=== PATIENT | female | born 1945 | race Caucasian/White ===

== ENCOUNTER 2021-08-17 18:58 | Emergency (ER) | payer MEDICARE, BC, SELFPAY ==
[2021-08-17 19:09] VITALS: BP 166/69; PULSE 72; RESP 16; TEMP 36.6; O2SAT 98; BMI 25.6
--- NOTE | 2021-08-17 19:37 | CRLHL7_ITS ---
For Patients: As a result of the Cures Act, medical imaging exams and procedure reports are released immediately into your electronic medical record. You may view this report before your referring provider. If you have questions, please contact your health care provider. HISTORY: Pain after injury. COMPARISON: None available. FINDINGS: The left foot is examined with AP, lateral, and oblique views. There is what appears to be a healing, nondisplaced, oblique, intra-articular fracture of the base of the 5th metatarsal. This fracture has poorly circumscribed margins consistent with healed There is an acute, nondisplaced, longitudinal fracture of the base of the 5th metatarsal, without extension into the articular surface. This fracture has crisp margins. There is no sign of additional fracture or dislocation. The soft tissues are normal in appearance without sign of radio-opaque foreign body. 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 There is a moderate plantar calcaneal spur. IMPRESSION: Healing, nondisplaced, oblique, intra-articular fracture of the base of the 5th metatarsal. Acute, nondisplaced, longitudinal fracture of the base of the 5th metatarsal. Dictated by Donaldo Gallo MD @ 08/17/2021 9:12:12 PM (Electronically Signed)
--- NOTE | 2021-08-17 19:38 | ED.LOWEXIN ---
HPI - Extremity Injury (Lower) General Time Seen by Provider: 19:38 Date Seen: 08/17/21 Chief Complaint: Extremity Pain/Injury, Lower Stated Complaint: LEFT FOOT INJURY Time Seen by Provider: 08/17/21 19:27 Source: patient History of Present Illness HPI Narrative: This 76-year-old female comes in with a persistent pain and swelling in the lateral aspect of her left foot. She states that she fell or twisted her foot a couple weeks ago and has been ambulating on it since then. She states that the pain is persisted with some mild erythema and swelling with tenderness at the base of the left 5th metatarsal. Related Data Home Medications Medication Instructions Recorded Confirmed benazepril 10 mg tablet mg 08/17/21 levothyroxine 88 mcg tablet mcg 08/17/21 rosuvastatin 10 mg tablet (Crestor) 10 mg PO DAILY 08/17/21 08/17/21 Allergies Allergy/AdvReac Type Severity Reaction Status Date / Time No Known Drug Allergies Allergy Verified 08/17/21 19:15 Review of Systems Status of ROS: Reports: 10 or more systems reviewed and unremarkable except as noted in History and below Narrative: Constitutional: No fevers, no weight gain or loss. Eyes: No discharge. No vision changes. HENT: No congestion, no sore throat, no ear pain. Cardiovascular: No chest pain, no palpitations. Respiratory: No shortness of breath, no wheezes, no cough. Gastrointestinal: No abdominal pain, no vomiting, no diarrhea. Genitourinary: No dysuria, no hematuria. Musculoskeletal: Left foot injury as described above. Skin: No rashes, no pruritis. Neurological: No dizziness, weakness, sensory change, speech change. Endo/Heme/Allergies: No bruising or bleeding. No polydipsia. Pysch: no suicidality, no anxiety, no insomnia. All other systems reviewed and are negative. PFSH PFSH Social History Smoking Status: Never smoker Do you use any of these nicotine containing products: None Second hand tobacco smoke exposure: Yes How often do you have a drink containing alcohol: monthly or less How often do you have six or more drinks on one occasion: Never AUDIT-C Alcohol total score: 1 Non-prescribed substance use: denies use Exam Narrative: Exam Narrative: Constitutional: Well-developed, well-nourished, no acute distress. HEENT: Normocephalic, atraumatic. Neck: Normal range of motion. Nontender. Supple. Heart: Regular. No murmurs. Normal rate. Intact distal pulses. Lungs: Clear to auscultation. No chest discomfort. No wheezes, rhonchi, or rales. Abdomen: Normal bowel sounds. Nontender. No rebound tenderness. Genitalia: Deferred. Back: No midline tenderness. Normal range of motion. Extremities: Tenderness localized on the proximal portion of the left 5th metatarsal with some overlying swelling and erythema. Skin: Intact. No rash. Warm. No erythema or pallor. Neurologic: No altered sensation. No weakness. Alert and oriented. Psychiatric: No suicidality. No anxiety or depression. No insomnia. Nursing notes and vitals signs are reviewed. Const: Vital Signs, click to edit/add: Vital Signs - 24 hr 08/17/21 19:09 Temperature 97.8 F Pulse Rate [Left P ulse Oximeter] 72 Respiratory Rate 16 Blood Pressure [Ri ght Upper Arm] 166/69 H Pulse Oximetry 98 Course Vital Signs Vital signs: Initial Vital Signs Temperature 97.8 F 08/17/21 19:09 Temperature Source Temporal Artery Scan 08/17/21 19:09 Pulse Rate 72 08/17/21 19:09 Pulse Strength 0+ Absent 08/17/21 19:09 Respiratory Rate 16 08/17/21 19:09 Blood Pressure 166/69 H 08/17/21 19:09 Blood Pressure Mean 101 08/17/21 19:09 Blood Pressure Position Sitting 08/17/21 19:09 Pulse Oximetry 98 08/17/21 19:09 Oxygen Delivery Method 08/17/21 19:09 Vital Signs Temperature 97.8 F 08/17/21 19:09 Pulse Rate 72 08/17/21 19:09 Respiratory Rate 16 08/17/21 19:09 Blood Pressure 166/69 H 08/17/21 19:09 Pulse Oximetry 98 08/17/21 19:09 Temperature 97.8 F 08/17/21 19:09 Pulse Rate 72 08/17/21 19:09 Respiratory Rate 16 08/17/21 19:09 Blood Pressure 166/69 H 08/17/21 19:09 Pulse Oximetry 98 08/17/21 19:09 MDM - Extremity Injury (Lower) MDM Narrative Medical decision making narrative: This patient comes in with an injury to her left foot that occurred 2 or 3 weeks ago. She continues to have some pain on the lateral aspect with some mild swelling and erythema. X-ray imaging shows what may have been a E nondisplaced fracture that is in the process of healing. This is at the base of the 5th metatarsal of the left foot. There is no displacement or malalignment. This patient is encouraged to ambulate in a way to minimize pain. She received an Juan Pablo wrap. It does not seem necessary to need to immobilize as this injury. I advised her to follow-up with orthopedic clinic as needed or if not improving. Imaging Data Foot x-ray: My impression: The base of the 5th metatarsal has a cortical irregularity suspicious of a nondisplaced fracture that is in process of healing by my review. Radiology report is pending Discharge Plan Discharge Clinical Impression: Injury of foot, left Condition: Stable Additional Instructions: Activity as tolerated. Ambulate with avoidance of painful stimulus. Use Juan Pablo wrap as needed. Follow-up with orthopedic clinic or return if worsening. Activity Level: Activity as Tolerated Prescriptions: No Action levothyroxine 88 mcg tablet 0RF Label Comments: TAKE ONE TABLET BY MOUTH ONE TIME DAILY benazepril 10 mg tablet 0RF Label Comments: TAKE ONE TABLET BY MOUTH ONE TIME DAILY rosuvastatin [Crestor] 10 mg tablet 10 mg PO DAILY 0RF Follow Up/Referrals: Candace Campos PA-C [Primary Care Provider] - Stand Alone Forms: [facility] [employer] Info Instructions
== END 2021-08-17 20:55 ==
PROVIDERS: Emergency Provider Emergency Medicine Emergency Medical Services; PCP Physician Assistant Medical
DX: S99.922A Unspecified injury of left foot, initial encounter (principal); X50.1XXA Overexertion from prolonged static or awkward postures, initial encounter
CPT/HCPCS: 73630; 99283; 99284

== ENCOUNTER 2022-09-15 17:45 | Emergency (ER) | payer MEDICARE, BC, SELFPAY ==
[2022-09-15 17:54] VITALS: BP 148/78; PULSE 69; RESP 18; TEMP 35.8; O2SAT 99; BMI 23.0
--- NOTE | 2022-09-15 18:29 | CRLHL7_ITS ---
For Patients: As a result of the Cures Act, medical imaging exams and procedure reports are released immediately into your electronic medical record. You may view this report before your referring provider. If you have questions, please contact your health care provider. INDICATION: Dog bite, swelling and laceration ulnar side of hand. TECHNIQUE: Two views. COMPARISON: None. FINDINGS: There is no radiographically evident acute/displaced fracture/dislocation. Cortical contour well-maintained. Generalized osteoarthritic narrowing of DIP and PIP joints. Mildly reduced bone density. No specific soft tissue lesion. Slight swelling about the medial aspect of the hand. No radiopaque foreign body visible. Dictated by Paolo Garcia MD @ 09/15/2022 8:14:33 PM (Electronically Signed)
--- NOTE | 2022-09-15 18:37 | ED_ITS ---
HPI - Animal Bite General Date Seen: 09/15/22 Chief Complaint: Animal Bite Stated Complaint: dog bit right hand on 09/13/22 Time Seen by Provider: 09/15/22 18:13 Source: patient Mode of arrival: ambulatory Limitations: no limitations History of Present Illness HPI narrative: Patient is a very nice lady who was bit on her right hand by her bull mastiff, he turned and really did bite her but the tooth guard caught on skin her head which she says is really thin. Last 2 days it has got a little bit more red, she still has pretty well full range of motion of her hand, hurts her little bit when the skin pulls apart, this was 3 days ago that occurred, the dog's shots are all up-to-date. She has no pain that comes up her hand, no fevers no chills, she is right-hand dominant she has been playing seeing some muciprozin ointment Onset (ago): day(s) Animal: dog Description of animal: household pet Mechanism: bite Location - Extremities: Right: hand Related Data Patient tetanus UTD: Yes Home Medications Medication Instructions Recorded Confirmed benazepril 10 mg tablet mg 08/17/21 levothyroxine 88 mcg tablet mcg 08/17/21 rosuvastatin 10 mg tablet (Crestor) 10 mg PO DAILY 08/17/21 08/17/21 Allergies Allergy/AdvReac Type Severity Reaction Status Date / Time No Known Drug Allergies Allergy Verified 08/17/21 19:15 Review of Systems Status of ROS: Reports: 6 or more systems reviewed and unremarkable except as noted in History and below PFSH PFSH Social History Smoking Status: Never smoker Do you use any of these nicotine containing products: None Second hand tobacco smoke exposure: Yes How often do you have a drink containing alcohol: monthly or less How often do you have six or more drinks on one occasion: Never AUDIT-C Alcohol total score: 1 Non-prescribed substance use: denies use Exam Narrative: Exam Narrative: Area on her right hand of approximately 1 x 3 in, with some skin tear, there is some granulation tissue, she has full finger extension but flexion causes or little bit of discomfort it is only at the site of the wound she says as it pulls the skin apart. Wrist has full range of motion, cap refills normal sensations normal, Const: Vital Signs, click to edit/add: Vital Signs - 24 hr 09/15/22 17:54 Temperature 96.5 F L Pulse Rate [Right Pulse Oximeter] 69 Respiratory Rate 18 Blood Pressure [Ri ght Upper Arm] 148/78 H Pulse Oximetry 99 Oxygen Delivery Me thod Room Air Course Course Hospital Course: X-ray was reportedly negative by myself reading it. Final read pending, I made her a splint, of her 4th and 5th fingers, in the position of comfort for her fingers, ulnar gutter type, bacitracin and Telfa were placed over the wound, post splinting cap refill sensation was all normal. Explained her she is going to have to be careful, cause if this gets into the tendons, can cause significant issues, I do not believe she has a tenosynovitis rate now. She will take the antibiotics, change the dressing daily, and leave the splint on she will follow up with primary care later in the week. Return here if signs and symptoms of worsening. Vital Signs Vital signs: Initial Vital Signs Temperature 96.5 F L 09/15/22 17:54 Temperature Source Temporal Artery Scan 09/15/22 17:54 Pulse Rate 69 09/15/22 17:54 Respiratory Rate 18 09/15/22 17:54 Blood Pressure 148/78 H 09/15/22 17:54 Blood Pressure Mean 101 09/15/22 17:54 Blood Pressure Position Sitting 09/15/22 17:54 Pulse Oximetry 99 09/15/22 17:54 Oxygen Delivery Method Room Air 09/15/22 17:54 Vital Signs Temperature 96.5 F L 09/15/22 17:54 Pulse Rate 69 09/15/22 17:54 Respiratory Rate 18 09/15/22 17:54 Blood Pressure 148/78 H 09/15/22 17:54 Pulse Oximetry 99 09/15/22 17:54 Oxygen Delivery Method Room Air 09/15/22 17:54 Temperature 96.5 F L 09/15/22 17:54 Pulse Rate 69 09/15/22 17:54 Respiratory Rate 18 09/15/22 17:54 Blood Pressure 148/78 H 09/15/22 17:54 Pulse Oximetry 99 09/15/22 17:54 Oxygen Delivery Method Room Air 09/15/22 17:54 MDM - Animal Bite MDM Narrative Medical decision making narrative: I discussed with her we will go ahead and get at x-ray to rule out of foreign body, will put her on some antibiotics likely Augmentin, and I will give her splint. Differential Diagnosis Differential diagnosis: Likely bite by animal, cat bite, dog bite and rabies contact Discharge Plan Discharge Clinical Impression: Dog bite Patient Disposition: Home, Self-Care Condition: Stable Instructions: Animal Bite (ED) Additional Instructions: Home rest wear splint for the next 7 days follow-up later in the week with your primary care physician for recheck. Wear the splint at all times except when you cleaning or showering. Take the antibiotics as directed, continued use of bacitracin on the wound. Activity Level: Light activity Prescriptions: No Action levothyroxine 88 mcg tablet Patient Comments: TAKE ONE TABLET BY MOUTH ONE TIME DAILY benazepril 10 mg tablet Patient Comments: TAKE ONE TABLET BY MOUTH ONE TIME DAILY rosuvastatin [Crestor] 10 mg tablet 10 mg PO DAILY Follow Up/Referrals: Candace Campos PA-C [Primary Care Provider] - Stand Alone Forms: [email or web address] Info Instructions
== END 2022-09-15 19:15 | disposition home or self-care (01) ==
PROVIDERS: Emergency Provider Family Medicine; PCP Physician Assistant Medical
DX: S61.254A Open bite of right ring finger without damage to nail, initial encounter (principal); S61.256A Open bite of right little finger without damage to nail, initial encounter; W54.0XXA Bitten by dog, initial encounter
CPT/HCPCS: 29130; 73120; 99283